=== PATIENT | female | born 2000 | race Caucasian/White ===

== ENCOUNTER 2021-04-05 18:12 | Emergency (ER) | payer OTHER, SELFPAY ==
--- NOTE | ~2021-04-05 | XR_ITS ---
EXAMINATION: XR facial bones min 3V, XR nasal bones min 3V EXAM DATE: 04/05/2021 18:44 (accession [id number]), 04/05/2021 19:22 (accession [id number]) INDICATION: Initial encounter following injury, with pain of the nose swollen. TECHNIQUE: Frontal, Chrissie's, lateral, submentovertex projections of the facial bones. Additional fro ntal and bilateral lateral projections of the nasal bones also obtained. There are no prior studies f or comparison. FINDINGS: There are no acute facial or nasal bone fractures or dislocations identified. There is no subcutaneous gas. The soft tissue is unremarkable. There are no radiopaque foreign bodies. Sinuse s appear well aerated. Orbital rims are intact. IMPRESSION: No acute facial or nasal bone fractures suspected. Reviewed, dictated and finalized at location A. IMPRESSION: No acute facial or nasal bone fractures suspected.
--- NOTE | 2021-04-05 18:17 | ED.GENADULT ---
HPI - General Adult General Chief complaint: Wound/Laceration Stated complaint: Nose injury Time Seen by Provider: 04/05/21 18:17 Source: patient and RN notes reviewed History of Present Illness HPI narrative: Patient is a 20-year-old female who presents the urgent care with complaints of a possible nasal fracture. Patient states that she works at a daycare and a kid came up on her nose really fast and she is having a lot of pain and thinks it looks a little twisted . Patient states that it happened at approximately 330pm today. Patient has not put any ice on her nose nor has she taken anything for pain. Patient states that she did not lose consciousness but did feel dizzy for a brief moment after the incident. Patient denies of any nasal bleeding. No other acute complaints. No acute distress noted. Patient aware of the plan of care. Some parts of this dictation were generated by voice recognition software and may contain typographical and/or grammatical inaccuracies. Related Data Home Medications Medication Instructions Recorded Confirmed levothyroxine 25 mcg PO DAILY 04/05/21 04/05/21 medroxyprogesterone 150 mg IM [id number] 04/05/21 04/05/21 Allergies Allergy/AdvReac Type Severity Reaction Status Date / Time No Known Allergies Allergy Verified 04/05/21 18:26 Review of Systems Review of Systems: Narrative: CONSTITUTIONAL: Denies fever, chills, or sweats. EYES: Denies visual changes, redness, or discharge. ENT: Denies rhinorrhea, congestion, sore throat, or otalgia. Reports of possible nose fracture/pain CARDIOVASCULAR: Denies chest pain, palpitations, or edema. RESPIRATORY: Denies cough or dyspnea. GASTROINTESTINAL: Denies abdominal pain, nausea, vomiting, or diarrhea. GENITOURINARY: Denies dysuria or hematuria. SKIN: Denies rash or itching. MUSCULOSKELETAL: Denies back pain, joint pain, or myalgia. NEUROLOGIC: Denies headache, numbness, or weakness. All other systems reviewed are negative, except as documented in HPI. PMFSH Comments At the time of my signature, I reviewed and agree with the nursing past medical, surgical, social, and family history. There is no relevant family history pertinent to the patient complaint. Exam Narrative: Exam Narrative: GENERAL: This is a well-nourished, well-developed patient, in no apparent distress. HEAD: normocephalic, atraumatic. EYES: PERRL. Sclera clear/white. Vision is grossly intact. EARS: External ears normal, auditory canals clear and without drainage, TMs normal without perforation. Hearing grossly intact. NOSE: Possible slight deviation to the right with very mild edema. Obvious nasal discharge, nares without redness, no rhinorrhea. THROAT: Mucous membranes moist NECK: Neck supple SKIN: warm, intact with no suspicious lesions or rash, good texture and turgor. NEURO: awake, alert, and oriented to person, place and time. There were no obvious focal neurologic abnormalities. EXTREMITIES: No clubbing, cyanosis, or edema. Course Vital Signs Vital signs: Vital Signs Temperature 99.9 F H 04/05/21 18:22 Pulse Rate 86 04/05/21 18:22 Respiratory Rate 16 04/05/21 18:22 Blood Pressure 153/101 H 04/05/21 18:22 Pulse Oximetry 100 04/05/21 18:22 Temperature 99.9 F H 04/05/21 18:27 Pulse Rate 86 04/05/21 18:27 Respiratory Rate 16 04/05/21 18:27 Blood Pressure 153/101 H 04/05/21 18:27 Pulse Oximetry 100 04/05/21 18:27 Reviewed-patient is informed that they may have pre-hypertension or hypertension based on a blood pressure reading in the department. I recommend the patient call the primary care provider listed on their discharge instructions or a physician of their choice this week to arrange follow-up for further evaluation of possible pre-hypertension or hypertension. Medical Decision Making MDM Narrative Medical decision making narrative: Reviewed x-ray results with the patient. She is aware that x-ray was negative for any abnormality or
[2021-04-05 18:22] VITALS: BP 153/101; PULSE 86; RESP 16; TEMP 37.7; O2SAT 100
[2021-04-05 18:27] VITALS: BP 153/101; PULSE 86; RESP 16; TEMP 37.7; O2SAT 100
== END 2021-04-05 19:39 | disposition home or self-care (01) ==
PROVIDERS: Emergency Provider Nurse Practitioner Family; PCP Internal Medicine
DX: S00.33XA Contusion of nose, initial encounter (principal); W51.XXXA Accidental striking against or bumped into by another person, initial encounter; Y99.0 Civilian activity done for income or pay; E03.9 Hypothyroidism, unspecified
CPT/HCPCS: 70150; 70160; 99213; G0463